=== PATIENT | male | born 1970 | race Caucasian/White ===

== ENCOUNTER → 2016-06-21 | Outpatient (CLI) | payer OTHER ==
[~2016-06-21] MED LIST: AMBIEN10 M1 PO; ANAPROX DS550 MG PO; AUGMENTIN 875 M1 TAB PO; AUGMENTIN 875875 MG PO; BENADRYL50 MG PO; BENTYL20 MG PO; CARAFATE1 G1 PO; CIPRODEX 0.3%-7.5 ML OT; CIPROFLOXACIN500 MG PO; CLARITIN10 MG PO; CLINDAMYCIN HC300 MG PO; COUMADIN10 M1 PO; COUMADIN6 MG PO; CYTOTEC200 MCG PO; DARVOCET N 1001 TAB PO; DAYPRO600 M1 PO; ENDOCET 325 MG-1 TA1 PO; ERGOCALCIFER50000 IU PO; FENOFIBRATE134 MG PO; FLEXERIL10 MG PO; FLOMAX0.4 MG PO; JANUVIA100 MG PO; LIDEX0.05% T; LIPITOR10 MG PO; LIPITOR40 MG PO; LISINOPRIL20 MG PO; LOMOTIL 0.025 M1 TAB PO; LOPID600 MG PO; MEDROL DOSEPAK4 MG PO; METFORMIN1000 MG PO; MOTRIN800 MG PO; NORVASC5 MG PO; OSCAL/D,OYSTER250 MG PO; PERCOCET 325 MG1 TA2 PO; PREDNICOT20 MG PO; PREVACID30 MG PO; PRILOSEC20 MG PO; PRILOSEC40 MG PO; PROAIR HFA0.09 MG/AC IH; PYRIDIUM200 MG PO; ROBAXIN-750750 MG PO; ROBAXIN750 MG PO; SINGULAIR10 MG PO; SKELAXIN800 MG PO; TRAD5TAB1 PO; VICODIN 5-3001 EACH PO; VICODIN 5/500 505 MG PO; VICODIN 500 MG-1 TAB PO; VICODIN ES 7501 TA1 PO; VICODIN ES 7501 TAB PO; VITAMIN D50000 I2 PO; VOLTAREN50 M1 PO; XANAX0.5 MG PO
[2016-06-21 12:14] LABS: BASO % 0.2 % (0.0-1.0); EOS # 0.1 10*3/uL (0.0-0.4); EOS % 2.8 % (1.0-4.0); HEMATOCRIT 38.7 % (42.0-52.0); LYMPH # 1.2 10*3/uL (1.3-4.4); LYMPH % 27.9 % (27.0-41.0); MEAN CELL VOLUME 90.2 fl (80.0-94.0); MEAN CORPUSCULAR HGB 30.3 pg (27.0-31.0); MEAN CORPUSCULAR HGB CONC 33.6 g/dl (33.0-37.0); MEAN PLATELET VOLUME 9.6 fl (9.6-12.3); MONO # 0.3 10*3/uL (0.1-1.0); MONO % 6.5 % (3.0-9.0); NEUT # 2.7 10*3/uL (2.3-7.9); NEUT % 62.4 % (47.0-73.0); PLATELET COUNT AUTOMATED 192 10*3/uL (130-400); RED BLOOD COUNT 4.29 10*6/uL (4.50-5.90); RED CELL DISTRI WIDTH 13.2 % (0-14.5); WHITE BLOOD COUNT 4.3 10*3/uL (4.8-10.8)
[2016-06-21 13:08] LABS: ALKALINE PHOSPHATASE 61 U/L (45-117); BILIRUBIN, TOTAL 0.5 mg/dl (0.2-1.0); BUN 17 mg/dl (7-24); CARBON DIOXIDE 24 mmol/L (21-32); CHLORIDE 107 mmol/L (98-107); CHOLESTEROL 133 mg/dL (<200); EST GLOM FILT AFRICAN AMERICAN > 60 ml/min; GLUCOSE 99 mg/dL (65-99); HDL CHOLESTEROL 35 mg/dl (40-60); LDL CHOLESTEROL 20 mg/dL (9-159); POTASSIUM 4.3 mmol/L (3.5-5.1); SGOT/AST 20 IU/L (3-35); SGPT/ALT 30 U/L (12-78); SODIUM 141 mmol/L (136-145); TOTAL PROTEIN 7.8 gm/dL (6.4-8.2); TRIGLYCERIDES 392 mg/dl (<150); VLDL CHOLESTEROL 78 mg/dL (6-40)
== END | disposition home or self-care (01) ==
LOC: LAB 11:35
PROVIDERS: Internal Medicine
DX: E11.9 Type 2 diabetes mellitus without complications (principal); E78.2 Mixed hyperlipidemia

== ENCOUNTER → 2016-09-29 | Outpatient (CLI) | payer OTHER ==
[2016-09-29 10:26] LABS: BASO % 0.4 % (0.0-1.0); EOS # 0.1 10*3/uL (0.0-0.4); EOS % 2.7 % (1.0-4.0); HEMATOCRIT 39.4 % (42.0-52.0); HEMOGLOBIN 13.2 g/dl (14.0-18.0); LYMPH # 1.4 10*3/uL (1.3-4.4); LYMPH % 31.3 % (27.0-41.0); MEAN CORPUSCULAR HGB 30.5 pg (27.0-31.0); MEAN CORPUSCULAR HGB CONC 33.5 g/dl (33.0-37.0); MEAN PLATELET VOLUME 9.7 fl (9.6-12.3); MONO # 0.3 10*3/uL (0.1-1.0); MONO % 6.9 % (3.0-9.0); NEUT # 2.6 10*3/uL (2.3-7.9); NEUT % 58.3 % (47.0-73.0); PLATELET COUNT AUTOMATED 171 10*3/uL (130-400); RED BLOOD COUNT 4.33 10*6/uL (4.50-5.90); WHITE BLOOD COUNT 4.5 10*3/uL (4.8-10.8)
== END | disposition home or self-care (01) ==
LOC: ORTHO 00:36
PROVIDERS: Orthopaedic Surgery
DX: D17.21 Benign lipomatous neoplasm of skin and subcutaneous tissue of right arm (principal); M19.011 Primary osteoarthritis, right shoulder; R22.31 Localized swelling, mass and lump, right upper limb

== ENCOUNTER → 2016-10-07 | Day surgery (SDC) | payer OTHER ==
[2016-10-01 14:41] LABS: BUN 18 mg/dl (7-24); CARBON DIOXIDE 27 mmol/L (21-32); CHLORIDE 109 mmol/L (98-107); EST GLOM FILT AFRICAN AMERICAN > 60 ml/min; GLUCOSE 90 mg/dL (65-99); POTASSIUM 4.7 mmol/L (3.5-5.1); SODIUM 142 mmol/L (136-145)
[2016-10-01 15:24] LABS: HEMOGLOBIN A1c 5.7 % (4.8-5.6)
[2016-10-05 07:02] LABS: INTERNATIONAL NORM RATIO 1.9 (2.0-3.5); PROTHROMBIN TIME 21.1 SECONDS (9.0-12.4)
[~2016-10-07] VITALS: Ht 177.8 cm; Wt 113.4 kg
[~2016-10-07] MED LIST changes: +ZOFRAN4 MG PO
--- NOTE | ~2016-10-07 | O ---
[place], [place] OPERATIVE NOTE NAME: NIYA ODELL SR [facility] #: [id number] UNIT #: [id number] ROOM: DOCTOR: BHARGAV OLIVERAKHOA BIRTHDATE: [birth year] DOS: 10/07/2016 PREOPERATIVE DIAGNOSIS: Right shoulder soft tissue mass. POSTOPERATIVE DIAGNOSIS: Right shoulder soft tissue mass with capsule. OPERATIVE PROCEDURE: Right shoulder excision of soft tissue mass and capsule. SURGEON: Khoa Nichole DO RHEUMATOLOGIST: Becky. ANESTHESIA: TIFFANY Scott. TYPE OF ANESTHESIA: Local MAC. INDICATIONS: The patient is a 46-year-old male with history of pain and swelling at the right lateral shoulder, just proximal to the deltoid attachment. He states that that has been there for several years, but has become increasing in size and discomfort. The patient states he was on an antibiotic which did seem to decrease the size. The risks and benefits of the procedure were explained to the patient preoperatively. Preoperative labs and x-rays were obtained. DESCRIPTION OF PROCEDURE: The right shoulder was marked in the holding room. The patient was brought to the operative suite. A monitored anesthetic was performed by Anesthesia. The right shoulder was prepped and draped in the usual orthopedic fashion. The incision was marked with a marking pen. The area was injected with Marcaine 0.5% with epinephrine. The incision was made sharply in a longitudinal fashion with a scalpel. This was approximately 4 cm in length. Subcutaneous tissue was spread down to the level of the mass. The mass was noted to have a capsule. The mass contained a white cheesy material as well as some cloudy thin liquid. The area was evacuated. The capsule was debrided with a rongeur. The area was copiously irrigated with normal saline. When no abnormal tissue remained, the wound was packed with half inch iodoform gauze that has been soaked in Marcaine with epinephrine. The wounds were closed with 4-0 Prolene in a horizontal mattress suture fashion leaving a portion of the packing to be removed at a later date. The area was covered with dry sterile dressing and Tegaderm. The patient was taken to recovery room in satisfactory condition. Sponge and needle counts correct. ESTIMATED BLOOD LOSS: 10 mL. SPECIMENS: Culture and soft tissue and capsule. DRAINS: None. [place], [place] OPERATIVE NOTE NAME: NIYA ODELL SR UNIT #: [id number] ROOM: DOCTOR: KHOA NICHOLE DO BIRTHDATE: [birth year] PACKING: Half inch Iodoform soaked in Marcaine with epinephrine. FINDINGS: A capsulized cystic formation approximately 3 cm in diameter filled with a white cheesy material and a thin cloudy material. COMPLICATIONS: None. KHOA NICHOLE DO CM:OPRECORD:OPERATIVE NOTE 1108 1204 KHOA NICHOLE DO 10/14/16 1205 interface
[2016-10-07 07:00] VITALS: BP 121/71
[2016-10-07 07:24] LABS: INTERNATIONAL NORM RATIO 1.2 (2.0-3.5); PROTHROMBIN TIME 13.4 SECONDS (9.0-12.4)
[2016-10-07 08:08] VITALS: BP 117/72
[2016-10-07 08:23] VITALS: BP 119/71
[2016-10-07 08:38] VITALS: BP 114/64
== END | disposition home or self-care (01) ==
LOC: SDC 10-01 12:30
PROVIDERS: Orthopaedic Surgery
DX: M79.89 Other specified soft tissue disorders (principal); I10 Essential (primary) hypertension; J45.909 Unspecified asthma, uncomplicated; E11.9 Type 2 diabetes mellitus without complications; J44.9 Chronic obstructive pulmonary disease, unspecified; E78.00 Pure hypercholesterolemia, unspecified; Z86.711 Personal history of pulmonary embolism; K21.9 Gastro-esophageal reflux disease without esophagitis; Z98.890 Other specified postprocedural states; Z82.49 Family history of ischemic heart disease and other diseases of the circulatory system; Z80.9 Family history of malignant neoplasm, unspecified; Z82.5 Family history of asthma and other chronic lower respiratory diseases

== ENCOUNTER 2016-12-30 15:53 | Emergency (ER) | payer OTHER ==
[~2016-12-30] VITALS: Ht 177.8 cm; Wt 113.4 kg
[2016-12-30] MEDS ORDERED: PERCOCET 325 MG1 TA2 PO (16:22)
== END 2016-12-30 18:13 | disposition home or self-care (01) ==
LOC: ED 15:53
DX: L72.3 Sebaceous cyst (principal); Z98.890 Other specified postprocedural states; Z79.899 Other long term (current) drug therapy; Z79.01 Long term (current) use of anticoagulants; Z88.8 Allergy status to other drugs, medicaments and biological substances; Z88.1 Allergy status to other antibiotic agents

== ENCOUNTER → 2017-02-28 | Outpatient (CLI) | payer OTHER ==
[~2017-02-28] MED LIST changes: +NORCO 5-325 TA1 EACH PO; +VITAMIN D CAP 500 PO
== END | disposition home or self-care (01) ==
LOC: RAD 09:18
DX: M54.41 Lumbago with sciatica, right side (principal); M54.42 Lumbago with sciatica, left side; G89.29 Other chronic pain; M81.0 Age-related osteoporosis without current pathological fracture

== ENCOUNTER → 2017-03-03 | Day surgery (SDC) | payer OTHER ==
[2017-02-28 09:32] LABS: BILIRUBIN NEGATIVE (NEGATIVE); BLOOD NEGATIVE (NEGATIVE); CLARITY CLEAR (CLEAR); COLOR YELLOW (YELLOW); GLUCOSE NEGATIVE (NEGATIVE); KETONE TRACE (NEGATIVE); LEUKO ESTERASE NEGATIVE (NEGATIVE); NITRITE NEGATIVE (NEGATIVE); PH 5.5 (5.0-9.0); SPECIFIC GRAVITY >= 1.030 (1.005-1.030); UROBILINOGEN 0.2 E.U./dl (0.2-1.0)
[2017-02-28 09:35] LABS: BASO % 0.5 % (0.0-1.0); EOS # 0.2 10*3/uL (0.0-0.4); EOS % 4.2 % (1.0-4.0); HEMATOCRIT 38.6 % (42.0-52.0); LYMPH # 1.3 10*3/uL (1.3-4.4); LYMPH % 32.7 % (27.0-41.0); MEAN CELL VOLUME 94.4 fl (80.0-94.0); MEAN CORPUSCULAR HGB 31.8 pg (27.0-31.0); MEAN CORPUSCULAR HGB CONC 33.7 g/dl (33.0-37.0); MEAN PLATELET VOLUME 9.8 fl (9.6-12.3); MONO # 0.3 10*3/uL (0.1-1.0); MONO % 6.9 % (3.0-9.0); NEUT # 2.2 10*3/uL (2.3-7.9); NEUT % 55.5 % (47.0-73.0); PLATELET COUNT AUTOMATED 164 10*3/uL (130-400); RED BLOOD COUNT 4.09 10*6/uL (4.50-5.90); RED CELL DISTRI WIDTH 13.4 % (0-14.5)
[2017-02-28 09:47] LABS: BACTERIA 1+; MUCOUS 2+
[2017-02-28 10:07] LABS: BUN 14 mg/dl (7-24); CHLORIDE 111 mmol/L (98-107); CREATININE 1.11 mg/dL (0.70-1.30); POTASSIUM 4.3 mmol/L (3.5-5.1); SODIUM 144 mmol/L (136-145)
[~2017-03-03] VITALS: Ht 177.8 cm; Wt 113.4 kg
--- NOTE | ~2017-03-03 | PROC NOTE ---
[place], [place] PROCEDURE NOTE NAME: NIYA ODELL SR [facility] #: [id number] UNIT #: [id number] ROOM: DOCTOR: PABLO ALDRIDGE MD BIRTHDATE: [birth year] DOS: 03/03/2017 PREOPERATIVE DIAGNOSIS: Right neck sebaceous cyst. POSTOPERATIVE DIAGNOSIS: Right neck sebaceous cyst. PROCEDURE: Excision of right neck sebaceous cyst. SURGEON: Pablo Aldridge MD INSURANCE CLAIMS REPRESENTATIVE: ASHELY. ANESTHESIA: MAC. INDICATIONS: This is a 46-year-old gentleman with a history of sebaceous cyst in the right neck that was symptomatic and he wishes it to be removed. He is here for the above-mentioned procedure. The procedure and its complications explained to the patient in detail. Complications that were discussed included, but were not limited to bleeding, infection, hematoma/seroma/abscess formation, prolonged pain. He agreed to proceed. DESCRIPTION OF PROCEDURE: After identifying the patient, the patient was brought to the operating suite and laid in the supine position. After IV sedation was administered, the head was turned to the left and the parts were then painted and draped in the usual sterile fashion. A time-out procedure was called. An elliptical incision was marked and local anesthesia (1% plain lidocaine) was injected. Incision was made and was deepened in layers. The ellipse of skin as well as the cyst was excised in its entirety and sent for histopathological diagnosis. Thereafter, hemostasis was achieved with the help of electrocautery and saline was used for irrigation. The skin and the subcutaneous tissue was all approximated in 1 layer with the help of 3-0 nylon in an interrupted fashion. A dressing was placed. The patient tolerated the procedure well and was brought back to the recovery room in stable fashion. There were no complications. Dr. Pablo Aldridge, the attending surgeon, was present throughout the operating case. Pablo Aldridge MD CM:PROCNOTE:PROCEDURE NOTE 1158 10 PABLO ALDRIDGE MD
[2017-03-03 10:00] VITALS: BP 113/67
[2017-03-03 11:50] VITALS: BP 126/54
[2017-03-03 12:05] VITALS: BP 105/58
[2017-03-03 12:20] VITALS: BP 118/58
== END | disposition home or self-care (01) ==
LOC: SDC 02-28 08:45
PROVIDERS: Surgery
DX: L72.0 Epidermal cyst (principal); L73.9 Follicular disorder, unspecified; J45.909 Unspecified asthma, uncomplicated; I10 Essential (primary) hypertension; E11.9 Type 2 diabetes mellitus without complications; K21.9 Gastro-esophageal reflux disease without esophagitis; J44.9 Chronic obstructive pulmonary disease, unspecified; E78.00 Pure hypercholesterolemia, unspecified; Z98.890 Other specified postprocedural states; Z82.49 Family history of ischemic heart disease and other diseases of the circulatory system; Z80.9 Family history of malignant neoplasm, unspecified

== ENCOUNTER 2017-05-09 08:52 | Emergency (ER) | payer OTHER ==
[~2017-05-09] VITALS: Ht 177.8 cm; Wt 113.4 kg
[2017-05-09] MEDS ORDERED: NORCO 5-325 TA1 EACH PO (10:41)
== END 2017-05-09 11:28 | disposition home or self-care (01) ==
LOC: ED 08:52
DX: S92.351A Displaced fracture of fifth metatarsal bone, right foot, initial encounter for closed fracture (principal); Z88.8 Allergy status to other drugs, medicaments and biological substances; Z79.899 Other long term (current) drug therapy; Z79.84 Long term (current) use of oral hypoglycemic drugs; X58.XXXA Exposure to other specified factors, initial encounter; Y93.01 Activity, walking, marching and hiking; Y92.89 Other specified places as the place of occurrence of the external cause; Y99.8 Other external cause status

== ENCOUNTER 2017-07-03 13:54 | Emergency (ER) | payer OTHER ==
[~2017-07-03] VITALS: Ht 177.8 cm; Wt 113.4 kg
[2017-07-03] MEDS ORDERED: NORCO 5-325 TA1 EACH PO (15:36)
== END 2017-07-03 15:43 | disposition home or self-care (01) ==
LOC: ED 13:54
DX: S93.402A Sprain of unspecified ligament of left ankle, initial encounter (principal); Z88.8 Allergy status to other drugs, medicaments and biological substances; W17.89XA Other fall from one level to another, initial encounter; Y93.89 Activity, other specified; Y92.89 Other specified places as the place of occurrence of the external cause; Y99.8 Other external cause status

== ENCOUNTER 2017-07-11 13:28 | Emergency (ER) | payer OTHER ==
[~2017-07-11] VITALS: Ht 177.8 cm; Wt 113.4 kg
[2017-07-11 14:26] LABS: BASO % 0.4 % (0.0-1.0); EOS # 0.1 10*3/uL (0.0-0.4); HEMATOCRIT 32.8 % (42.0-52.0); HEMOGLOBIN 10.9 g/dl (14.0-18.0); LYMPH # 0.9 10*3/uL (1.3-4.4); LYMPH % 16.8 % (27.0-41.0); MEAN CELL VOLUME 95.1 fl (80.0-94.0); MEAN CORPUSCULAR HGB 31.6 pg (27.0-31.0); MEAN CORPUSCULAR HGB CONC 33.2 g/dl (33.0-37.0); MEAN PLATELET VOLUME 9.6 fl (9.6-12.3); MONO # 0.5 10*3/uL (0.1-1.0); MONO % 9.1 % (3.0-9.0); NEUT # 3.9 10*3/uL (2.3-7.9); NEUT % 71.2 % (47.0-73.0); PLATELET COUNT AUTOMATED 226 10*3/uL (130-400); RED BLOOD COUNT 3.45 10*6/uL (4.50-5.90); RED CELL DISTRI WIDTH 15.7 % (0-14.5); WHITE BLOOD COUNT 5.5 10*3/uL (4.8-10.8)
[2017-07-11 14:36] LABS: ACT PARTIAL THROMBO TIME 28.8 SECONDS (20.8-31.5); INTERNATIONAL NORM RATIO 3.7 (2.0-3.5)
[2017-07-11 14:42] LABS: ALBUMIN 3.5 gm/dl (3.1-4.5); ALKALINE PHOSPHATASE 96 U/L (45-117); BUN 15 mg/dl (7-24); CHLORIDE 106 mmol/L (98-107); CREATININE 1.05 mg/dL (0.70-1.30); POTASSIUM 5.3 mmol/L (3.5-5.1); SGOT/AST 29 IU/L (3-35); SGPT/ALT 27 U/L (12-78); SODIUM 139 mmol/L (136-145); TOTAL PROTEIN 6.9 gm/dL (6.4-8.2)
== END 2017-07-11 15:40 | disposition home or self-care (01) ==
LOC: ED 13:28
PROVIDERS: Nurse Practitioner Family
DX: S80.12XA Contusion of left lower leg, initial encounter (principal); Z88.8 Allergy status to other drugs, medicaments and biological substances; Z79.899 Other long term (current) drug therapy; Z79.84 Long term (current) use of oral hypoglycemic drugs; Z79.01 Long term (current) use of anticoagulants; W19.XXXA Unspecified fall, initial encounter; Y93.89 Activity, other specified; Y92.89 Other specified places as the place of occurrence of the external cause; Y99.8 Other external cause status

== ENCOUNTER 2018-10-18 10:00 | Emergency (ER) | payer OTHER ==
[~2018-10-18] VITALS: Ht 177.8 cm; Wt 113.4 kg
--- NOTE | ~2018-10-18 | EKG ---
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
[~2018-10-18 10:00] MED LIST changes: +SEROQUEL200 MG PO; +ULTRAM50 MG PO
[2018-10-18 10:31] LABS: BASO % 0.6 % (0.0-1.0); EOS # 1.3 10*3/uL (0.0-0.4); EOS % 18.6 % (1.0-4.0); HEMATOCRIT 34.4 % (42.0-52.0); HEMOGLOBIN 11.6 g/dl (14.0-18.0); LYMPH # 1.1 10*3/uL (1.3-4.4); MEAN CELL VOLUME 92.7 fl (80.0-94.0); MEAN CORPUSCULAR HGB 31.3 pg (27.0-31.0); MEAN CORPUSCULAR HGB CONC 33.7 g/dl (33.0-37.0); MEAN PLATELET VOLUME 9.6 fl (9.6-12.3); MONO # 0.3 10*3/uL (0.1-1.0); MONO % 4.3 % (3.0-9.0); NEUT # 4.3 10*3/uL (2.3-7.9); NEUT % 61.1 % (47.0-73.0); PLATELET COUNT AUTOMATED 227 10*3/uL (130-400); RED BLOOD COUNT 3.71 10*6/uL (4.50-5.90); RED CELL DISTRI WIDTH 12.5 % (0-14.5)
[2018-10-18 10:54] LABS: ALBUMIN 3.2 gm/dl (3.1-4.5); ALKALINE PHOSPHATASE 254 U/L (45-117); BUN 14 mg/dl (7-24); CHLORIDE 105 mmol/L (98-107); CREATININE 1.08 mg/dL (0.70-1.30); POTASSIUM 3.7 mmol/L (3.5-5.1); SGOT/AST 10 IU/L (3-35); SGPT/ALT 17 U/L (12-78); SODIUM 140 mmol/L (136-145)
[2018-10-18 10:55] LABS: TROPONIN I < 0.015 ng/ml (<0.045)
[2018-10-18 10:59] LABS: INTERNATIONAL NORM RATIO 2.6 (2.0-3.5)
== END 2018-10-18 15:07 | disposition home or self-care (01) ==
LOC: ED 10:00
PROVIDERS: Nurse Practitioner Family
DX: S22.41XD Multiple fractures of ribs, right side, subsequent encounter for fracture with routine healing (principal); J45.909 Unspecified asthma, uncomplicated; E11.9 Type 2 diabetes mellitus without complications; I10 Essential (primary) hypertension; E78.5 Hyperlipidemia, unspecified; K21.9 Gastro-esophageal reflux disease without esophagitis; Z88.8 Allergy status to other drugs, medicaments and biological substances; Z79.899 Other long term (current) drug therapy; Z79.01 Long term (current) use of anticoagulants; W10.9XXD Fall (on) (from) unspecified stairs and steps, subsequent encounter

== ENCOUNTER 2019-02-11 11:20 | Inpatient (IN) | payer OTHER ==
[~2019-02-11] VITALS: Ht 177.8 cm; Wt 115.7 kg
[~2019-02-11 11:20] MED LIST changes: -ROBAXIN750 MG PO
[2019-02-11 11:21] VITALS: BP 122/79
[2019-02-11 12:02] LABS: BASO % 0.2 % (0.0-1.0); EOS # 0.1 10*3/uL (0.0-0.4); HEMATOCRIT 35.5 % (42.0-52.0); HEMOGLOBIN 11.7 g/dl (14.0-18.0); LYMPH # 0.9 10*3/uL (1.3-4.4); LYMPH % 13.1 % (27.0-41.0); MEAN CELL VOLUME 88.5 fl (80.0-94.0); MEAN CORPUSCULAR HGB 29.2 pg (27.0-31.0); MEAN PLATELET VOLUME 9.2 fl (9.6-12.3); MONO # 0.4 10*3/uL (0.1-1.0); MONO % 6.5 % (3.0-9.0); NEUT # 5.2 10*3/uL (2.3-7.9); NEUT % 77.9 % (47.0-73.0); PLATELET COUNT AUTOMATED 153 10*3/uL (130-400); RED BLOOD COUNT 4.01 10*6/uL (4.50-5.90); RED CELL DISTRI WIDTH 14.5 % (0-14.5); WHITE BLOOD COUNT 6.6 10*3/uL (4.8-10.8)
[2019-02-11 12:15] LABS: BILIRUBIN NEGATIVE (NEGATIVE); BLOOD NEGATIVE (NEGATIVE); CLARITY SL CLOUDY (CLEAR); COLOR YELLOW (YELLOW); GLUCOSE NEGATIVE (NEGATIVE); KETONE NEGATIVE (NEGATIVE); LEUKO ESTERASE NEGATIVE (NEGATIVE); NITRITE NEGATIVE (NEGATIVE); UROBILINOGEN 0.2 E.U./dl (0.2-1.0)
[2019-02-11 12:17] LABS: ALBUMIN 3.4 gm/dl (3.1-4.5); ALKALINE PHOSPHATASE 117 U/L (45-117); BUN 12 mg/dl (7-24); CHLORIDE 107 mmol/L (98-107); CREATININE 1.06 mg/dL (0.70-1.30); LIPASE 164 U/L (73-393); POTASSIUM 3.7 mmol/L (3.5-5.1); SGOT/AST 15 IU/L (3-35); SGPT/ALT 21 U/L (12-78); SODIUM 139 mmol/L (136-145); TOTAL PROTEIN 6.8 gm/dL (6.4-8.2)
[2019-02-11 12:32] LABS: BACTERIA TRACE
[2019-02-11 14:48] VITALS: BP 114/75
[2019-02-11 17:38] VITALS: BP 136/83
[2019-02-11 20:00] VITALS: BP 134/72
[2019-02-12] VITALS: BP 114/78
[2019-02-12 05:34] VITALS: BP 127/89
[2019-02-12 06:02] LABS: BASO % 0.3 % (0.0-1.0); EOS # 0.2 10*3/uL (0.0-0.4); EOS % 3.5 % (1.0-4.0); HEMATOCRIT 31.4 % (42.0-52.0); HEMOGLOBIN 10.4 g/dl (14.0-18.0); MEAN CELL VOLUME 88.5 fl (80.0-94.0); MEAN CORPUSCULAR HGB 29.3 pg (27.0-31.0); MEAN CORPUSCULAR HGB CONC 33.1 g/dl (33.0-37.0); MEAN PLATELET VOLUME 10.2 fl (9.6-12.3); MONO # 0.5 10*3/uL (0.1-1.0); MONO % 7.7 % (3.0-9.0); NEUT # 4.3 10*3/uL (2.3-7.9); PLATELET COUNT AUTOMATED 162 10*3/uL (130-400); RED BLOOD COUNT 3.55 10*6/uL (4.50-5.90); RED CELL DISTRI WIDTH 14.3 % (0-14.5)
[2019-02-12 06:18] LABS: BUN 12 mg/dl (7-24); CHLORIDE 110 mmol/L (98-107); CHOLESTEROL 162 mg/dL (<200); CREATININE 0.91 mg/dL (0.70-1.30); HDL CHOLESTEROL 46 mg/dl (40-60); LDL CHOLESTEROL 52 mg/dL (9-159); PHOSPHOROUS 2.5 mg/dL (2.5-4.9); POTASSIUM 3.7 mmol/L (3.5-5.1); SODIUM 142 mmol/L (136-145); TRIGLYCERIDES 319 mg/dl (<150); VLDL CHOLESTEROL 64 mg/dL (6-40)
[2019-02-12 07:00] LABS: ACT PARTIAL THROMBO TIME 75.7 SECONDS (20.0-32.1)
[2019-02-12 07:02] LABS: INTERNATIONAL NORM RATIO 8.8 (2.0-3.5)
--- NOTE | 2019-02-12 07:25 | NUR ---
CALL PLACED TO HOSPITALIST REGARDING INR OF 8.8 THIS MORNING. WAS GIVEN NORMAL HOME DOSE OF COUMADIN AND 5MG DOSE GIVEN LAST NIGHT.
[2019-02-12 07:55] VITALS: BP 121/75
--- NOTE | 2019-02-12 07:55 | NUR ---
ASSUMED CARE OF PATIENT. UPON ENTERING ROOM, IS ASLEEP AND IN NO OBVIOUS DISTRESS. AWAKENED EASILY TO NAME. CONTINUES TO HAVE RLQ PAIN AND DOES NOT FEEL WELL IN GENERAL. LAST BM LAST NIGHT AND IS PASSING FLATUS. REPORTS MORPHINE MINIMALLY EFFECTIVE FOR PAIN AND," ALL IT DOES IS CONSTIPATE ME." UPDATED ON PLAN OF CARE AND AWAITING ROOM ASSIGNMENT. IS NOT READY FOR BREAKFAST AT THIS TIME. NEURO: A&O X 4 RESP: REGUALR, EASY, CLEAR CARDIAC: S1, S2, REGULAR ABD: SOFT, TENDER, NORMOACTIVE BOWEL SOUNDS X 4, RLQ PAIN : ASYMPTOMATIC SKIN: PINK, WARM, DRY ADVISED OF ELEVATED INR AND NEED TO HOLD COUMADIN TODAY. REPORTS INR WAS NORMAL 2 WEEKS AGO.
--- NOTE | 2019-02-12 07:59 | NUR ---
BGL 112.
--- NOTE | 2019-02-12 08:45 | NUR ---
Time: 844 A 48 year old MALE admitted to 4E under services of KALYAN CARRILLO DO. Pt. arrived via stretcher from ER. Chief complaint: ABDOMINAL PAIN. CLAYTON PICKARD
[2019-02-12] MEDS ORDERED: TRAD5TAB1 PO (08:54)
[2019-02-12] MEDS ORDERED: ZESTRIL40 MG PO (08:55)
[2019-02-12] MEDS ORDERED: COUMADIN6 M2 PO (09:00)
--- NOTE | 2019-02-12 10:08 | NUR ---
norco given for abdominal pain 01/06. see emar. will monitor for effectiveness. pt aware that he also has available dilaudid for break through pain.
--- NOTE | 2019-02-12 11:17 | NUR ---
dilaudid given for right lower quad 7/10 pain
[2019-02-12 12:00] VITALS: BP 131/74
--- NOTE | 2019-02-12 12:00 | NUR ---
dilaudid effective for paini
--- NOTE | 2019-02-12 15:47 | NUR ---
DISCUSS WITH DR. MCCLELLAN, IV FLUIDS THAT WERE ORDERED WHILE AN ER HOLD, THAT WAS NOT GIVEN. OKAY TO START IV FLUIDS THAT WERE PREVIOUSLY ORDERED
--- NOTE | 2019-02-12 15:47 | NUR ---
PT STATES PAIN RIGHT LOWER QUAD ABDOMEN 8/10, DILAUDID GIVEN.
[2019-02-12 16:00] VITALS: BP 145/90
--- NOTE | 2019-02-12 16:20 | NUR ---
DILAUDID EFFECTIVE FOR PAIN
--- NOTE | 2019-02-12 19:46 | NUR ---
SITTING UP IN BED WATCHING TV. RESPIRATIONS EASY. LUNGS DIMINISHED, CLEAR. ROOM AIR. ABD SOFT WITH NORMO BS, CLAIMS BM 02/11 WHICH WAS LOOSE. DENIES N/V. REQUESTED AND RECEIVED NORCO PER PRN ORDER FOR COMPLAINTS OF RLQ ABD PAIN RATING AN 8. IV FLUIDS AND ANTIBIOTICS INFUSING PER ORDER. CALL LIGHT WITHIN REACH. WILL MONITOR
--- NOTE | 2019-02-12 20:26 | NUR ---
24 HR chart check completed.
--- NOTE | 2019-02-12 21:00 | NUR ---
IV ALARMING. UPON ENTERING ROOM, PATIENT SITTING UP IN BED AND STATES "CAN U TAKE THIS OUT (MOTIONING TO IV). PATIENT STATES "I'M LEAVING." QUESTIONED PATIENT TO WHY TO WHICH PATIENT REPLIED "THEY ALREADY TOLD ME WHAT I NEEDED TO KNOW, IT'S NOT MY APPENDIX." QUESTIONED PATIENT IF HE WAS FEELING BETTER, PATIENT STATES HE IS FEELING THE SAME. ENCOURAGED PATIENT TO STAY BUT PATIENT ADAMENT THAT HE IS LEAVING. HEP LOCK REMOVED. FREDRICK SIGNED. 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
== END 2019-02-12 21:18 | disposition left against medical advice (07) | DRG 872 ==
LOC: ED 11:20 → 4E 17:41 → EDHOLD 17:41 → 4E 02-12 07:28
PROVIDERS: Family Medicine; Nurse Practitioner Family; ADMIT Family Medicine
DX: A41.9 Sepsis, unspecified organism (principal); E72.12 Methylenetetrahydrofolate reductase deficiency; E44.1 Mild protein-calorie malnutrition; I10 Essential (primary) hypertension; E78.5 Hyperlipidemia, unspecified; E11.65 Type 2 diabetes mellitus with hyperglycemia; E83.52 Hypercalcemia; D64.9 Anemia, unspecified; E87.8 Other disorders of electrolyte and fluid balance, not elsewhere classified; E78.1 Pure hyperglyceridemia; E66.9 Obesity, unspecified; K52.9 Noninfective gastroenteritis and colitis, unspecified; K21.9 Gastro-esophageal reflux disease without esophagitis; Z88.8 Allergy status to other drugs, medicaments and biological substances; Z79.899 Other long term (current) drug therapy; Z86.718 Personal history of other venous thrombosis and embolism; Z79.01 Long term (current) use of anticoagulants; Z82.49 Family history of ischemic heart disease and other diseases of the circulatory system; Z80.0 Family history of malignant neoplasm of digestive organs; Z68.36 Body mass index [BMI] 36.0-36.9, adult

== ENCOUNTER → 2019-03-16 | Outpatient (CLI) | payer OTHER ==
[~2019-03-16] MED LIST changes: +COUMADIN6 M2 PO; +ZESTRIL40 MG PO
[2019-03-16 10:40] LABS: URINE AMPHETAMINES < 1000 (1000ng/ml); URINE BARBITURATES < 200 (200ng/ml); URINE BENZODIAZEPINES < 200 (200ng/ml); URINE CANNABINOIDS (THC) < 50 (50ng/ml); URINE COCAINE < 300 (300ng/ml); URINE METHADONE < 300 (300ng/ml); URINE OPIATES < 300 (300ng/ml)
[2019-03-16 10:42] LABS: URINE PHENCYCLIDINE < 25 (25ng/ml)
== END | disposition home or self-care (01) ==
LOC: LAB 10:01
DX: F11.20 Opioid dependence, uncomplicated (principal)

== ENCOUNTER → 2019-12-27 | Outpatient (CLI) | payer OTHER ==
[~2019-12-27] MED LIST changes: +ELIQUIS5 M1 PO; +IBU800 MG PO
== END | disposition home or self-care (01) ==
LOC: COVID19 04:31
DX: Z01.818 Encounter for other preprocedural examination (principal); Z11.59 Encounter for screening for other viral diseases

== ENCOUNTER → 2020-01-02 | Day surgery (SDC) | payer OTHER ==
[~2020-01-02] VITALS: Ht 175.2 cm; Wt 117.9 kg
[~2020-01-02] MED LIST changes: +OCUFLOX 0.3% 5 M5 ML OD; +PRED FORTE5 ML OD
[2020-01-02 08:35] VITALS: BP 121/83
[2020-01-02 09:07] VITALS: BP 136/81
[2020-01-02 09:22] VITALS: BP 127/93
[2020-01-02 09:37] VITALS: BP 137/83
== END | disposition home or self-care (01) ==
LOC: SDC 12-28 12:30
DX: H25.811 Combined forms of age-related cataract, right eye (principal); I10 Essential (primary) hypertension; E11.36 Type 2 diabetes mellitus with diabetic cataract; J44.9 Chronic obstructive pulmonary disease, unspecified; E78.00 Pure hypercholesterolemia, unspecified; K21.9 Gastro-esophageal reflux disease without esophagitis; Z98.890 Other specified postprocedural states; Z79.899 Other long term (current) drug therapy; Z83.3 Family history of diabetes mellitus; Z82.5 Family history of asthma and other chronic lower respiratory diseases

== ENCOUNTER → 2020-05-03 | Outpatient (CLI) | payer OTHER | END | disposition home or self-care (01) | LOC: COVID19 09:45 | PROVIDERS: ATTEND Physician Assistant | DX: U07.1 COVID-19 (principal) ==

== ENCOUNTER 2020-09-01 08:50 | Emergency (ER) | payer OTHER ==
[~2020-09-01] VITALS: Wt 111.1 kg
[2020-09-01 10:14] LABS: BASO % 0.2 % (0.0-1.0); EOS % 0.6 % (1.0-4.0); HEMATOCRIT 32.7 % (42.0-52.0); LYMPH # 0.7 10*3/uL (1.3-4.4); MEAN CELL VOLUME 88.9 fl (80.0-94.0); MEAN CORPUSCULAR HGB 30.4 pg (27.0-31.0); MEAN CORPUSCULAR HGB CONC 34.3 g/dl (33.0-37.0); MEAN PLATELET VOLUME 9.9 fl (9.6-12.3); MONO # 0.5 10*3/uL (0.1-1.0); NEUT # 4.1 10*3/uL (2.3-7.9); PLATELET COUNT AUTOMATED 174 10*3/uL (130-400); RED BLOOD COUNT 3.68 10*6/uL (4.50-5.90); RED CELL DISTRI WIDTH 13.8 % (0-14.5); WHITE BLOOD COUNT 5.4 10*3/uL (4.8-10.8)
[2020-09-01 10:31] LABS: ALBUMIN 2.6 gm/dl (3.1-4.5); BUN 10 mg/dl (7-24); CHLORIDE 107 mmol/L (98-107); CREATININE 0.82 mg/dL (0.70-1.30); LIPASE 273 U/L (73-393); POTASSIUM 3.1 mmol/L (3.5-5.1); SGOT/AST 29 IU/L (3-35); SGPT/ALT 53 U/L (12-78); SODIUM 137 mmol/L (136-145); TOTAL PROTEIN 7.4 gm/dL (6.4-8.2)
[2020-09-01 10:32] LABS: ALKALINE PHOSPHATASE 102 U/L (45-117)
[2020-09-01 12:14] LABS: ACT PARTIAL THROMBO TIME 28.8 SECONDS (20.0-32.1); INTERNATIONAL NORM RATIO 1.1 (2.0-3.5)
== END 2020-09-01 21:10 | disposition short-term general hospital (02) ==
LOC: ED 08:50
PROVIDERS: Physician Assistant
DX: K11.8 Other diseases of salivary glands (principal); L03.211 Cellulitis of face; I10 Essential (primary) hypertension; E11.9 Type 2 diabetes mellitus without complications; K21.9 Gastro-esophageal reflux disease without esophagitis; J44.9 Chronic obstructive pulmonary disease, unspecified; E78.00 Pure hypercholesterolemia, unspecified; Z86.711 Personal history of pulmonary embolism; Z88.8 Allergy status to other drugs, medicaments and biological substances; Z79.899 Other long term (current) drug therapy; Z79.2 Long term (current) use of antibiotics; Z98.61 Coronary angioplasty status

== ENCOUNTER 2020-11-13 11:00 | Emergency (ER) | payer OTHER ==
[~2020-11-13] VITALS: Ht 177.8 cm; Wt 111.1 kg
[2020-11-13] MEDS ORDERED: DOXYCYCLINE100 M3 PO (14:54)
[2020-11-13] MEDS ORDERED: Bactroban Oint22 GM T (14:54)
== END 2020-11-13 15:04 | disposition home or self-care (01) ==
LOC: ED 11:00
DX: L72.3 Sebaceous cyst (principal); Z88.8 Allergy status to other drugs, medicaments and biological substances; Z79.899 Other long term (current) drug therapy; Z95.818 Presence of other cardiac implants and grafts; Z98.890 Other specified postprocedural states

== ENCOUNTER → 2021-06-16 | Outpatient (CLI) | payer OTHER ==
[~2021-06-16] MED LIST changes: +Bactroban Oint22 GM T; +DOXYCYCLINE100 M3 PO
== END ==
LOC: RAD 13:30
PROVIDERS: ATTEND Physician Assistant
DX: R07.9 Chest pain, unspecified (principal); I10 Essential (primary) hypertension; E01.0 Iodine-deficiency related diffuse (endemic) goiter

== ENCOUNTER → 2021-07-20 | Outpatient (CLI) | payer OTHER ==
[~2021-07-20] MED LIST changes: +FARXIGA10 M1 PO; +FISH OIL CONC1000 M2 PO; +HYDROCODONE-AC1 EAC1 PO; +LOPRESSOR25 MG PO; +LYRICA100 M1 PO; +METFORMIN HYD1000 MG PO; +SINGULAIR10 M1 PO; +TRICOR48 MG PO; +VENT7GM INH
== END | disposition home or self-care (01) ==
LOC: CARD 00:10
PROVIDERS: ATTEND Physician Assistant
DX: I10 Essential (primary) hypertension (principal); E11.9 Type 2 diabetes mellitus without complications; R07.9 Chest pain, unspecified; R06.02 Shortness of breath; F33.1 Major depressive disorder, recurrent, moderate; E78.2 Mixed hyperlipidemia

== ENCOUNTER → 2021-08-07 | Outpatient (CLI) | payer OTHER | END | disposition home or self-care (01) | LOC: MRI 13:36 | PROVIDERS: ATTEND Student in an Organized Health Care Education/Training Program | DX: M48.061 Spinal stenosis, lumbar region without neurogenic claudication (principal); M51.36 Other intervertebral disc degeneration, lumbar region ==

== ENCOUNTER 2021-11-21 17:43 | Emergency (ER) | payer OTHER ==
[~2021-11-21] VITALS: Ht 177.8 cm; Wt 117.9 kg
[2021-11-21] MEDS ORDERED: AUGMENTIN 875-875 MG PO (18:19)
== END 2021-11-21 18:45 | disposition home or self-care (01) ==
LOC: ED 17:43
DX: Z45.2 Encounter for adjustment and management of vascular access device (principal); K21.9 Gastro-esophageal reflux disease without esophagitis; I10 Essential (primary) hypertension; E78.5 Hyperlipidemia, unspecified; Z79.899 Other long term (current) drug therapy; Z88.8 Allergy status to other drugs, medicaments and biological substances

== ENCOUNTER 2022-01-07 23:29 | Emergency (ER) | payer OTHER ==
[~2022-01-07] VITALS: Ht 177.8 cm; Wt 122.5 kg
[~2022-01-07 23:29] MED LIST changes: +AUGMENTIN 875-875 MG PO
[2022-01-07] MEDS ORDERED: HYDROCODONE-AC1 EACH PO (23:54)
[2022-01-08 01:13] LABS: BASO % 0.2 % (0.0-1.0); EOS # 0.1 10*3/uL (0.0-0.4); EOS % 0.6 % (1.0-4.0); HEMATOCRIT 33.9 % (42.0-52.0); LYMPH # 1.5 10*3/uL (1.3-4.4); LYMPH % 16.2 % (27.0-41.0); MEAN CELL VOLUME 91.9 fl (80.0-94.0); MEAN CORPUSCULAR HGB 30.6 pg (27.0-31.0); MEAN CORPUSCULAR HGB CONC 33.3 g/dl (33.0-37.0); MEAN PLATELET VOLUME 9.8 fl (9.6-12.3); MONO # 0.5 10*3/uL (0.1-1.0); MONO % 5.5 % (3.0-9.0); NEUT # 7.3 10*3/uL (2.3-7.9); NEUT % 76.5 % (47.0-73.0); PLATELET COUNT AUTOMATED 230 10*3/uL (130-400); RED BLOOD COUNT 3.69 10*6/uL (4.50-5.90); RED CELL DISTRI WIDTH 14.2 % (0-14.5); WHITE BLOOD COUNT 9.5 10*3/uL (4.8-10.8)
[2022-01-08 01:31] LABS: ALKALINE PHOSPHATASE 89 U/L (45-117); BUN 13 mg/dl (7-24); CHLORIDE 102 mmol/L (98-107); CREATININE 0.97 mg/dL (0.70-1.30); LIPASE 258 U/L (73-393); SGOT/AST 38 IU/L (3-35); SGPT/ALT 36 U/L (12-78); SODIUM 131 mmol/L (136-145); TOTAL PROTEIN 7.2 gm/dL (6.4-8.2)
[2022-01-14] MEDS ORDERED: PREGABALIN150 MG PO (19:45)
[2022-01-15] MEDS ORDERED: DOCUSATE SOD100 MG PO (13:21)
[2022-01-15] MEDS ORDERED: VITAMIN D350 MC2 PO (13:21)
== END 2022-01-08 04:15 | disposition short-term general hospital (02) ==
LOC: ED 23:29
PROVIDERS: Emergency Medicine
DX: S42.301A Unspecified fracture of shaft of humerus, right arm, initial encounter for closed fracture (principal); S01.21XA Laceration without foreign body of nose, initial encounter; S80.212A Abrasion, left knee, initial encounter; F10.929 Alcohol use, unspecified with intoxication, unspecified; K21.9 Gastro-esophageal reflux disease without esophagitis; I10 Essential (primary) hypertension; E66.9 Obesity, unspecified; Z86.718 Personal history of other venous thrombosis and embolism; E78.5 Hyperlipidemia, unspecified; Z88.8 Allergy status to other drugs, medicaments and biological substances; Z79.899 Other long term (current) drug therapy; W18.39XA Other fall on same level, initial encounter; Y93.89 Activity, other specified; Y92.89 Other specified places as the place of occurrence of the external cause; Y99.8 Other external cause status; Y90.9 Presence of alcohol in blood, level not specified

== ENCOUNTER → 2022-01-22 | Outpatient (CLI) | payer OTHER ==
[~2022-01-22] MED LIST changes: +DOCUSATE SOD100 MG PO; +HYDROCODONE-AC1 EACH PO; +PREGABALIN150 MG PO; +VITAMIN D350 MC2 PO
== END | disposition home or self-care (01) ==
LOC: ORTHO 13:12
PROVIDERS: ATTEND Orthopaedic Surgery
DX: S42.301A Unspecified fracture of shaft of humerus, right arm, initial encounter for closed fracture (principal); X58.XXXA Exposure to other specified factors, initial encounter; Y93.89 Activity, other specified; Y92.89 Other specified places as the place of occurrence of the external cause; Y99.8 Other external cause status

== ENCOUNTER → 2022-02-08 | Outpatient (CLI) | payer OTHER | END | disposition home or self-care (01) | LOC: ORTHO 02-05 02:19 | PROVIDERS: ATTEND Orthopaedic Surgery | DX: S42.301A Unspecified fracture of shaft of humerus, right arm, initial encounter for closed fracture (principal); X58.XXXA Exposure to other specified factors, initial encounter; Y93.89 Activity, other specified; Y92.89 Other specified places as the place of occurrence of the external cause; Y99.8 Other external cause status ==

== ENCOUNTER → 2022-03-01 | Outpatient (CLI) | payer OTHER | END | disposition home or self-care (01) | LOC: ORTHO 01:14 | PROVIDERS: ATTEND Orthopaedic Surgery | DX: S42.201D Unspecified fracture of upper end of right humerus, subsequent encounter for fracture with routine healing (principal); S42.301D Unspecified fracture of shaft of humerus, right arm, subsequent encounter for fracture with routine healing; X58.XXXD Exposure to other specified factors, subsequent encounter ==

== ENCOUNTER → 2022-03-22 | Outpatient (CLI) | payer OTHER | END | disposition home or self-care (01) | LOC: ORTHO 01:51 | PROVIDERS: ATTEND Orthopaedic Surgery | DX: S42.201D Unspecified fracture of upper end of right humerus, subsequent encounter for fracture with routine healing (principal); S42.301D Unspecified fracture of shaft of humerus, right arm, subsequent encounter for fracture with routine healing; X58.XXXD Exposure to other specified factors, subsequent encounter ==

== ENCOUNTER 2022-06-09 17:07 | Emergency (ER) | payer OTHER ==
[~2022-06-09] VITALS: Wt 117.9 kg
[2022-06-09] MEDS ORDERED: AMOX-CLAV 875-1 EACH PO (17:32)
[2022-06-09 18:23] LABS: BASO % 0.2 % (0.0-1.0); EOS # 0.1 10*3/uL (0.0-0.4); EOS % 2.2 % (1.0-4.0); HEMATOCRIT 32.1 % (42.0-52.0); LYMPH # 0.8 10*3/uL (1.3-4.4); LYMPH % 15.4 % (27.0-41.0); MEAN CELL VOLUME 88.2 fl (80.0-94.0); MEAN CORPUSCULAR HGB 29.4 pg (27.0-31.0); MEAN CORPUSCULAR HGB CONC 33.3 g/dl (33.0-37.0); MEAN PLATELET VOLUME 10.5 fl (9.6-12.3); MONO # 0.3 10*3/uL (0.1-1.0); MONO % 6.1 % (3.0-9.0); NEUT # 3.7 10*3/uL (2.3-7.9); NEUT % 75.7 % (47.0-73.0); PLATELET COUNT AUTOMATED 182 10*3/uL (130-400); RED BLOOD COUNT 3.64 10*6/uL (4.50-5.90); RED CELL DISTRI WIDTH 14.3 % (0-14.5); WHITE BLOOD COUNT 4.9 10*3/uL (4.8-10.8)
[2022-06-09 18:40] LABS: ALKALINE PHOSPHATASE 100 U/L (46-116); BUN 20 mg/dl (9-23); CHLORIDE 99 mmol/L (98-107); POTASSIUM 3.9 mmol/L (3.4-5.1); TOTAL PROTEIN 6.8 gm/dL (6.0-8.0)
[2022-06-09 18:42] LABS: SGPT/ALT < 7 U/L (10-49)
== END 2022-06-09 20:15 | disposition home or self-care (01) ==
LOC: ED 17:07
PROVIDERS: Emergency Medicine
DX: K11.20 Sialoadenitis, unspecified (principal); K12.2 Cellulitis and abscess of mouth; Z88.8 Allergy status to other drugs, medicaments and biological substances; Z98.890 Other specified postprocedural states; Z90.89 Acquired absence of other organs

== ENCOUNTER 2024-04-05 11:31 | Emergency (ER) | payer OTHER ==
[~2024-04-05] VITALS: Ht 177.8 cm; Wt 113.4 kg
[~2024-04-05 11:31] MED LIST changes: +AMOX-CLAV 875-1 EACH PO
[2024-04-05] MEDS ORDERED: Ondansetron Hydrochloride 4 MG/2 ML VIAL IV ONE ×2 (11:50→18:05)
[2024-04-05] MEDS ORDERED: SODIUM CHLORIDE 0.9% 1,000 ML IV ONE (11:50)
[2024-04-05] MEDS ORDERED: MORPHINE Sulfate 2 MG/ML SYR IV ONE ×2 (11:50→18:10)
[2024-04-05] MEDS ORDERED: IOHEXOL 300 MG/ML 100 ML VIAL IV ONE (11:55)
[2024-04-05 12:33] LABS: BASO % 0.4 % (0.0-1.0); EOS # 0.1 10*3/uL (0.0-0.4); EOS % 2.5 % (1.0-4.0); HEMATOCRIT 34.5 % (42.0-52.0); MEAN CELL VOLUME 95.3 fl (80.0-94.0); MEAN CORPUSCULAR HGB 31.5 pg (27.0-31.0); MEAN PLATELET VOLUME 8.9 fl (9.6-12.3); MONO # 0.2 10*3/uL (0.1-1.0); MONO % 6.4 % (3.0-9.0); NEUT # 1.6 10*3/uL (2.3-7.9); PLATELET COUNT AUTOMATED 198 10*3/uL (130-400); RED BLOOD COUNT 3.62 10*6/uL (4.50-5.90); RED CELL DISTRI WIDTH 13.5 % (0-14.5); WHITE BLOOD COUNT 2.4 10*3/uL (4.8-10.8)
[2024-04-05 12:56] LABS: BUN 6 mg/dl (9-23); CHLORIDE 102 mmol/L (98-107); POTASSIUM 3.9 mmol/L (3.4-5.1)
[2024-04-05] MEDS ORDERED: Vancomycin Hydrochloride 250 ML IV ONE (14:20)
[2024-04-05] MEDS ORDERED: Piperacillin Sodium/Tazobact 50 ML IV ONE (14:20)
== END 2024-04-05 18:42 | disposition short-term general hospital (02) ==
LOC: ED 11:31
PROVIDERS: Emergency Medicine
DX: L02.11 Cutaneous abscess of neck (principal); E11.9 Type 2 diabetes mellitus without complications; I10 Essential (primary) hypertension; E78.5 Hyperlipidemia, unspecified; J44.9 Chronic obstructive pulmonary disease, unspecified; K21.9 Gastro-esophageal reflux disease without esophagitis; E78.00 Pure hypercholesterolemia, unspecified; Z86.718 Personal history of other venous thrombosis and embolism; Z88.8 Allergy status to other drugs, medicaments and biological substances; Z95.5 Presence of coronary angioplasty implant and graft; Z98.890 Other specified postprocedural states

== ENCOUNTER → 2024-04-24 | Outpatient (CLI) | payer OTHER | END | disposition home or self-care (01) | LOC: WOUNDCARE 02:16 | PROVIDERS: ATTEND Nurse Practitioner Family | DX: S11.80XA Unspecified open wound of other specified part of neck, initial encounter (principal); C76.0 Malignant neoplasm of head, face and neck; L02.11 Cutaneous abscess of neck; K12.2 Cellulitis and abscess of mouth; E11.9 Type 2 diabetes mellitus without complications; I10 Essential (primary) hypertension; E78.5 Hyperlipidemia, unspecified; J44.9 Chronic obstructive pulmonary disease, unspecified; Z92.3 Personal history of irradiation; Z86.718 Personal history of other venous thrombosis and embolism; Z95.818 Presence of other cardiac implants and grafts; Z96.643 Presence of artificial hip joint, bilateral; Z79.84 Long term (current) use of oral hypoglycemic drugs; Z79.899 Other long term (current) drug therapy; X58.XXXA Exposure to other specified factors, initial encounter; Y93.89 Activity, other specified; Y92.89 Other specified places as the place of occurrence of the external cause; Y99.8 Other external cause status ==

== ENCOUNTER → 2024-05-18 | Outpatient (CLI) | payer OTHER | LOC: WOUNDCARE 01:18 | PROVIDERS: ATTEND Nurse Practitioner Family | DX: S11.80XD Unspecified open wound of other specified part of neck, subsequent encounter (principal); C76.0 Malignant neoplasm of head, face and neck; L02.11 Cutaneous abscess of neck; K12.2 Cellulitis and abscess of mouth; E11.9 Type 2 diabetes mellitus without complications; I10 Essential (primary) hypertension; E78.5 Hyperlipidemia, unspecified; J44.9 Chronic obstructive pulmonary disease, unspecified; Z92.3 Personal history of irradiation; Z86.718 Personal history of other venous thrombosis and embolism; Z95.818 Presence of other cardiac implants and grafts; Z96.643 Presence of artificial hip joint, bilateral; Z79.84 Long term (current) use of oral hypoglycemic drugs; Z79.899 Other long term (current) drug therapy; X58.XXXD Exposure to other specified factors, subsequent encounter ==

== ENCOUNTER → 2024-07-19 | Outpatient (CLI) | payer OTHER | END | disposition home or self-care (01) | LOC: WOUNDCARE 04:15 | PROVIDERS: ATTEND Nurse Practitioner Family | DX: S11.80XD Unspecified open wound of other specified part of neck, subsequent encounter (principal); I10 Essential (primary) hypertension; L02.11 Cutaneous abscess of neck; K12.2 Cellulitis and abscess of mouth; C76.0 Malignant neoplasm of head, face and neck; E11.9 Type 2 diabetes mellitus without complications; E78.5 Hyperlipidemia, unspecified; J44.9 Chronic obstructive pulmonary disease, unspecified; Z85.810 Personal history of malignant neoplasm of tongue; Z92.3 Personal history of irradiation; Z86.718 Personal history of other venous thrombosis and embolism; Z96.653 Presence of artificial knee joint, bilateral; Z98.890 Other specified postprocedural states; Z79.899 Other long term (current) drug therapy; X58.XXXD Exposure to other specified factors, subsequent encounter ==